=== PATIENT | male | born 1995 | race African-American/Black ===

== ENCOUNTER 2022-08-16 06:24 | Emergency (ER) | payer SELFPAY ==
--- NOTE | ~2022-08-16 | CT_ITS ---
CT Abdomen and Pelvis with contrast. History: Abdominal pain. Spiral CT of the abdomen and pelvis was performed after the administration of intravenous contrast. 1 00 cc of Omnipaque 350 was administered intravenously without complication. Dose reduction technique was used on this scan by utilizing automated exposure control and iterative reconstruction technique. The dose-length product (DLP) was 652.50 mGy-cm. Findings: Scans through the lung bases are unremarkable. The liver, spleen, pancreas, gallbladder, adrenals and left kidney are within normal limits. There is a 3 mm stone at the distal right ureter (axial image 166), with minimal fullness of the right renal collecting system and mild delayed right nephrogram as compared to the left kidney. No evidence of ao rtic aneurysm. No lymphadenopathy is seen. There is no evidence of bowel obstruction. There is no evidence to suggest acute appendicitis or dive rticulitis. Images through the pelvis were performed. Urinary bladder otherwise unremarkable. No pelvic mass evid ent. No ascites is seen. Impression: 3 mm distal right ureteral stone with minimal right hydronephrosis and mild delayed right nephrogram as compared to the left kidney. Reviewed, dictated and finalized at [facility]. [employer] Impression: 3 mm distal right ureteral stone with minimal right hydronephrosis and mild del ayed right nephrogram as compared to the left kidney.
[2022-08-16 06:25] VITALS: BP 150/84; PULSE 75; RESP 20; TEMP 36.9; O2SAT 100
--- NOTE | 2022-08-16 06:36 | PC.NURSE ---
Pt c/o right sided abdominal pain that started at 0500 this morning. Abdomen tender on right side. +Nausea. When asked pt when his last BM was pt states I don't know . He denies vomiting, diarrhea, blood in his stool, or urinary symptoms. Denies any medical or surgical history.
[2022-08-16 06:46] LABS: Basophils Percent Auto 0.3 % (0.2-1.2); Eosinophils Absolute Auto 0.1 K/mm3 (0-0.3); Eosinophils Percent Auto 0.9 % (0-4.4); Hematocrit 38.5 % (42.0-52.0); Hemoglobin 12.4 g/dL (14.0-18.0); Immature Granulocyte Absolute 0.03 K/mm3 (0.00-0.031); Immature Granulocyte Percent A 0.3 % (0-0.5); Lymphocytes Percent Auto 36.5 % (18.3-44.2); Mean Corpuscular HGB Conc 32.2 g/dl (32-36); Mean Corpuscular Hemoglobin 26.8 pg (26-34); Mean Corpuscular Volume 83.3 fl (80-100); Mean Platelet Volume 9.6 fl (7.4-10.4); Monocytes Absolute Auto 0.7 K/mm3 (0.1-0.6); Monocytes Percent Auto 6.9 % (2.6-8.5); Neutrophils Absolute Auto 5.4 K/mm3 (1.3-6.7); Neutrophils Percent Auto 55.1 % (45.5-73.1); Platelet Count Result 258 k/mm3 (150-375); Red Blood Count 4.62 M/mm3 (4.6-6.20); Red Cell Distribution Width 13.3 % (11.5-14.5); White Blood Count 9.9 K/mm3 (4.5-10.0)
[2022-08-16 06:58] LABS: Alanine Aminotransferase 35 U/L (6-50); Albumin Level 4.3 g/dL (3.5-5.1); Alkaline Phosphatase 65 U/L (38-126); Anion Gap 6 mmol/L (8-16); Aspartate Amino Transferase 29 U/L (17-59); Bilirubin,Total 0.3 mg/dL (0.2-1.3); Blood Urea Nitrogen 15 mg/dL (9-20); Carbon Dioxide 30 mmol/L (22-30); Chloride 100 mmol/L (98-107); Estimated CRCL calculation 126 ml/min; Estimated Glomerular Filt Rate > 60; Glucose 126 mg/dL (65-110); Lipase 58 U/L (23-300); Potassium 3.2 mmol/L (3.4-5.0); Sodium 136 mmol/L (137-145)
[2022-08-16 07:06] VITALS: BP 134/73; PULSE 68; RESP 20; O2SAT 100
[2022-08-16 07:14] LABS: Appearance Urine Clear (Clear); Bilirubin Urine Negative (Negative); Blood Urine 2+ (Negative); Color Urine Yellow (Yellow); Glucose Urine UA Negative (Negative); Ketones Urine Negative (Negative); Leukocyte Esterase Ur Negative LEU/UL (Negative); Mucus Urine Rare /lpf; Nitrate Urine Negative (Negative); Protein Urine Trace mg/dL (Negative); RBC Urine >75 /hpf (0-2); Specific Grav Ur >= 1.030 (1.001-1.035); Squamous Epithelial Cell Urine Rare /hpf (Few); Urobilinogen Urine 0.2 mg/dL (<2.0); WBC Urine 0-3 /hpf; pH Urine 5.5 (5.0-9.0)
[2022-08-16 07:18] LABS: Add Urine Microscopic? YES
[2022-08-16] MEDS: SODIUM CHLORIDE 0.9% IV 1,000 ML 150 ML IV CONT (07:30)
[2022-08-16] MEDS: ONDANSETRON INJ 4 MG/2 ML VIAL IV PUSH (07:31)
[2022-08-16] MEDS: MORPHINE SULFATE (*CRX) 4 MG/ML INJ IV PUSH (07:32)
--- NOTE | 2022-08-16 08:27 | ED.ABDPAIN ---
HPI - Abdominal Pain General Chief Complaint: Abdominal Pain Stated Complaint: RLQ pain Time Seen by Provider: 08/16/22 06:30 Source: patient Mode of arrival: ambulatory Limitations: no limitations History of Present Illness HPI narrative: 27-year-old otherwise healthy here with the sudden onset of right lower abdominal pain started about 1 hour ago associated with mild nausea but no significant vomiting. He denies any fever or chills. MD elicited complaint: abdominal pain Pertinent past history: none Onset (ago): hour(s) (1) Pain Consistency: constant Location: RLQ Severity: moderate Quality: stabbing and aching Radiation: R flank Exacerbating factors: nothing Relieving factors: nothing Associated symptoms: nausea Related Data Allergies Allergy/AdvReac Type Severity Reaction Status Date / Time No Known Allergies Allergy Verified 08/16/22 06:29 Review of Systems Review of Systems: All systems reviewed & are unremarkable except as noted in HPI and below Constitutional: Constitutional: Reports no additional constitutional complaints Eyes: Eyes: Reports no additional eye complaints ENT: Reports system reviewed and no additional complaints, except as documented Cardiovascular: Cardiovascular: Reports no additional cardiovascular complaints Respiratory: Respiratory: Reports no additional respiratory complaints Gastrointestinal: Gastrointestinal: Reports as per HPI Genitourinary: Genitourinary: Reports no additional male genitourinary complaints Musculoskeletal: Musculoskeletal: Reports no additional musculoskeletal complaints Integumentary/Breasts: Skin/Breast: Reports system reviewed and no additional complaints, except as docu Neurologic: Reports system reviewed and no additional complaints, except as documented Endocrine: Endocrine: Reports no additional endocrine complaints Exam Narrative: GENERAL: Well-appearing, well-nourished, and in no acute distress. HEAD: Normocephalic, atraumatic. EYES: PERRLA and EOMI. NECK: Supple. CHEST: Clear to auscultation. No respiratory distress. HEART: Regular rate and rhythm. No murmur heard. Normal peripheral pulses. ABDOMEN: Soft, mild tenderness in the right lower quadrant, nondistended, normal active bowel sounds. EXTREMITIES: Normal range of motion. No edema. SKIN: Warm, dry, no rash. NEURO: No focal deficits. Alert and oriented x3. PSYCH: Normal mood and affect. Course Course Emergency Course: Patient presents with a right lower quadrant pain sudden onset with mild nausea his exam is unremarkable we will give IV morphine for pain control , did CT of the abdomen and pelvis which shows 3 mm distal ureteral stone with mild hydro his lab work is unremarkable he still continues to be in pain will administer IV Toradol Vital Signs Vital signs: Vital Signs Temperature 36.9 C 08/16/22 06:25 Pulse Rate 75 08/16/22 06:25 Respiratory Rate 20 08/16/22 06:25 Blood Pressure 150/84 H 08/16/22 06:25 Pulse Oximetry 100 08/16/22 06:25 Oxygen Delivery Room Air 08/16/22 06:25 Temperature 36.9 C 08/16/22 06:25 Pulse Rate 68 08/16/22 07:06 Respiratory Rate 20 08/16/22 07:06 Blood Pressure 134/73 08/16/22 07:06 Pulse Oximetry 100 08/16/22 07:06 Oxygen Delivery Room Air 08/16/22 06:25 MDM - Abdominal Pain MDM Narrative Medical decision making narrative: 27-year-old otherwise healthy with sudden onset of right lower quadrant pain with 1 hour duration with mild nausea suspect ureteral stone less likely appendicitis do CT of the abdomen and lab work control his pain with IV morphine and nausea with Zofran. Differential Diagnosis Differential diagnosis: Likely acute appendicitis, calculus of kidney and gastroenteritis Medical Records Attestation: I reviewed the patient's medical records. Lab Data Attestation: I reviewed the patient's lab results. 08/16/22 06:39 08/16/22 06:39 Labs: Lab Results 08/16
[2022-08-16] MEDS: KETOROLAC 15 MG/ML VIAL (*BKC) IV PUSH (09:08)
[2022-08-16 10:50] VITALS: BP 168/89; PULSE 87; RESP 16; O2SAT 100
== END 2022-08-16 10:50 | disposition home or self-care (01) ==
PROVIDERS: Emergency Medicine; Emergency Provider Family Medicine; PCP Emergency Medicine
DX: N20.1 Calculus of ureter (principal)
CPT/HCPCS: 36415; 74177; 80053; 81001; 83690; 85025; 96361; 96374; 96375; 99284; J1885; J2270; J2405; J7030; Q9967